=== PATIENT | male | born 1960 | race Caucasian/White ===

== ENCOUNTER 2024-01-03 10:14 | Outpatient (CLI) | payer OTHER, SELFPAY | END 2024-01-03 10:15 | disposition home or self-care (01) | LOC: AMB 01-07 13:39 | PROVIDERS: PCP Family Medicine; Visit Provider Family Medicine | DX: S69.90XA Unspecified injury of unspecified wrist, hand and finger(s), initial encounter (principal); W45.0XXA Nail entering through skin, initial encounter; W26.8XXA Contact with other sharp object(s), not elsewhere classified, initial encounter; Y93.H3 Activity, building and construction; Y92.008 Other place in unspecified non-institutional (private) residence as the place of occurrence of the external cause | CPT/HCPCS: A0998 ==